=== PATIENT | male | born 1965 | race Caucasian/White ===

== ENCOUNTER 2025-10-17 09:29 | Emergency (ER) | payer BC, SELFPAY ==
[2025-10-17 09:39] VITALS: BP 190/113; BP 194/105; PULSE 77; RESP 22; TEMP 36.4; O2SAT 98; BMI 31.0
--- NOTE | 2025-10-17 09:45 | XR_ITS ---
Examination: CT middle inner ear, without contrast. 2-D coronal reconstructions. 2-D sagittal reconstructions. Date and time of exam: October 17, 2025, 1004 hours INDICATIONS: Right ear pain 1 week CTDI: vol (mGy): 18.6 DLP: (mGycm): 221 Technique: Multiple 1.0 mm axial sections of the middle inner ears bilaterally. High-resolution 64 slice scanner utilized. 2-D coronal reconstructions 2-D sagittal reconstructions Low dose protocols were performed. One or more of the following dose reduction techniques were used; automated exposure control, adjustment of the mA and/or KV according to patient size, use of iterative reconstruction technique. Findings: Axial sections of the right demonstrate adequate mastoid aeration. Mild acute right mastoiditis Jugular fossa and carotid canal do not appear remarkable. No deformity of the ossicles. Porus acusticus internus does not exhibit erosion. Cochlear apparatus unremarkable. Semicircular canals normal. External auditory canal open. Coronal reconstructions demonstrate no erosion of the scutum. No soft tissue mass in the attic or Prussak's space is seen. Ossicular mass intact. Axial sections of the left demonstrate adequate mastoid aeration. Jugular fossa and carotid canal do not appear remarkable. No deformity of the ossicles. Porus acusticus internus does not exhibit erosion. Cochlear apparatus unremarkable. Semicircular canals normal. External auditory canal open Coronal reconstructions demonstrate no erosion of the scutum. No soft tissue mass in the attic or Prussak's space is seen. Ossicular mass intact. Roof of the mastoid air cells appear intact bilaterally. Impression: Negative for chronic mastoiditis Mild acute right mastoiditis Negative for otitis media, negative for otitis externa Negative for acquired cholesteatoma
--- NOTE | 2025-10-17 09:46 | PD.EDEAR ---
ED Ear RME/HPI General Chief complaint: Ear Stated complaint: RIGHT EARACHE Time Seen by Provider: 10/17/25 09:33 Source: patient Arrival date/time: 10/17/25 09:29 60-year-old male with no known medical history presents to the emergency room with a chief complaint of tenderness in 10 out of 10 pain behind the right ear x 2 days Mode of arrival: ambulatory Limitations: no limitations Related Data Previous Rx's ?Medication ?Instructions ?Recorded amoxicillin 875 mg-potassium 1 tab PO BID 7 days #14 tabs 10/17/25 clavulanate 125 mg tablet Allergies Allergy/AdvReac Type Severity Reaction Status Date / Time No Known Allergies Allergy Verified 10/17/25 09:32 Review of Systems Review of Systems Systems Reviewed: All systems reviewed, normal except as documented Constitutional Constitutional: Reports system reviewed and no additional complaints, except as documented, Denies fatigue, Denies fever(s), Denies headache(s) and Denies weakness Eyes Eyes: Reports system reviewed and no additional complaints, except as documented, Denies blurry vision and Denies change in vision ENT Ears, Nose, Mouth, and Throat: Reports system reviewed and no additional complaints, except as documented, Reports otalgia, Denies headache(s), Denies nasal congestion, Denies throat swelling and Denies vertigo Cardiovascular Cardiovascular: Reports system reviewed and no additional complaints, except as documented, Denies chest pain, Denies dyspnea and Denies dyspnea on exertion Respiratory Respiratory: Reports system reviewed and no additional complaints, except as documented, Denies chest congestion, Denies cough, Denies dyspnea, Denies dyspnea on exertion and Denies wheezing Gastrointestinal Gastrointestinal: Reports system reviewed and no additional complaints, except as documented, Denies abdominal pain, Denies cramping, Denies nausea and Denies vomiting Genitourinary Genitourinary: Reports system reviewed and no additional complaints, except as documented, Denies dysuria and Denies hematuria Musculoskeletal Musculoskeletal: Reports system reviewed and no additional complaints, except as documented and Denies back pain Integumentary/Breasts Skin/Breast: Reports system reviewed and no additional complaints, except as documented and Denies wounds Neurologic Neurologic: Reports system reviewed and no additional complaints, except as documented, Denies confusion, Denies headache(s), Denies lack of coordination, Denies vertigo and Denies weakness Psychiatric Psychiatric: Reports system reviewed and no additional complaints, except as documented, Denies anxiety, Denies confusion, Denies depression, Denies paranoia, Denies suicidal ideation and Denies tactile hallucinations Endocrine Endocrine: Reports system reviewed and no additional complaints, except as documented and Denies fatigue Hematologic/Lymphatic Hematologic/Lymphatic: Reports system reviewed and no additional complaints, except as documented and Denies lymphadenopathy Allergic/Immunologic Allergic/Immunologic: Reports system reviewed and no additional complaints, except as documented, Denies throat swelling, Denies urticaria and Denies wheezing Past Medical History Social History SMOKING STATUS: Never smoker ED Exam General Limitations: Present no limitations General appearance: Present alert and in no apparent distress Head Head exam: Present atraumatic Eye Eye exam: Present normal appearance, PERRL and EOMI ENT ENT exam: Present normal exam, normal oropharynx and mucous membranes moist Expanded ENT Exam External ear exam: Present external tenderness TM/Canal exam: Right TM: bulging, effusion and canal tenderness Neck Neck exam: Present normal inspection, full ROM and trachea midline Chest Chest inspection: Present normal inspection and symmetric chest wall rise Respiratory Respiratory exam: Present normal lung sounds bilaterally Cardiovascular Cardiovascular exam: Present regular rate, normal rhythm and normal heart sounds Abdominal Exam Abdominal exam: Present soft and normal bowel sounds Extremities Exam Extremities exam: Present normal inspection and full ROM Back Exam Back exam: Present normal inspection and full ROM Neurological Exam Neurological exam: Present alert, oriented X3 and CN II-XII intact Psychiatric Psychiatric exam: Present normal affect and normal mood Skin Skin exam: Present warm, dry, intact and normal color Course Quality Measures none Orders Category Date Time Status CT ear mid-inner wo Stat Exams 10/17/25 09:45 Completed CBC Stat Lab 10/17/25 09:54 Completed CMP [Comprehensive Metabolic Panel] Stat Lab 10/17/25 09:54 Completed CRP [C-Reactive Protein] Stat Lab 10/17/25 09:54 Completed ESR [Sed Rate (ESR)] Stat Lab 10/17/25 09:54 Completed Ketorolac Inj [Toradol Inj] Med 10/17/25 09:45 Discontinued 30 mg IM X1 ONE cefTRIAXone [Rocephin] 1,000 mg Med 10/17/25 09:46 Discontinued Lidocaine 1% Pf 5 ml [Xylocaine 1% Pf 5 ml] 2.1 ml IM X1 cloNIDine HCL [Catapres] Med 10/17/25 09:46 Discontinued 0.1 mg PO X1 ONE Vital Signs Vital signs: Vital Signs Temperature 97.5 F 10/17/25 09:39 Pulse Rate 77 10/17/25 09:39 Respiratory Rate 22 H 10/17/25 09:39 Blood Pressure 194/105 H 10/17/25 09:39 Pulse Oximetry (%) 98 10/17/25 09:39 Oxygen Delivery Method Room Air 10/17/25 09:39 Ear Patient data External records reviewed:: [facility] previous records Clinical information provided by:: patient Social determinants that could affect healthcare access:: none Patient has the following chronic illnesses:: No chronic illness How is presenting disease/condition affected by chronic disease/condition?: no chronic disease Evaluation data The following diagnostics were reviewed and interpreted by me:: lab results and radiology exam(s) Lab and/or radiology exams considered but not ordered:: Labs and radiology exams considered and ordered Interpretation Summary: CT inner ear-Findings: Axial sections of the right demonstrate adequate mastoid aeration. Mild acute right mastoiditis Jugular fossa and carotid canal do not appear remarkable. No deformity of the ossicles. Porus acusticus internus does not exhibit erosion. Cochlear apparatus unremarkable. Semicircular canals normal. External auditory canal open. Coronal reconstructions demonstrate no erosion of the scutum. No soft tissue mass in the attic or Prussak's space is seen. Ossicular mass intact. Axial sections of the left demonstrate adequate mastoid aeration. Jugular fossa and carotid canal do not appear remarkable. No deformity of the ossicles. Porus acusticus internus does not exhibit erosion. Cochlear apparatus unremarkable. Semicircular canals normal. External auditory canal open Coronal reconstructions demonstrate no erosion of the scutum. No soft tissue mass in the attic or Prussak's space is seen. Ossicular mass intact. Roof of the mastoid air cells appear intact bilaterally. Impression: Negative for chronic mastoiditis Mild acute right mastoiditis Negative for otitis media, negative for otitis externa Negative for acquired cholesteatoma Medications / Prescriptions Medications or Prescriptions considered but not ordered:: Medication given Medication administrations:: Medication Administration History Discontinued Medications Clonidine (Clonidine Hcl 0.1 Mg Tablet) 0.1 mg PO X1 ONE Stop: 10/17/25 09:47 Last Admin: 10/17/25 09:53 Dose: 0.1 mg Documented By: OA Ceftriaxone Sodium 1,000 mg/ (Lidocaine HCl 2.1 ml) 0 mg IM X1 ONE Stop: 10/17/25 09:47 Last Admin: 10/17/25 09:54 Dose: 2.1 mg Documented By: OA Ketorolac Tromethamine (Ketorolac Inj 60 Mg/2 Ml Vial) 30 mg IM X1 ONE Stop: 10/17/25 09:46 Last Admin: 10/17/25 09:54 Dose: 30 mg Documented By: OA Medication given Consultations Consultation(s) initiated? (list below): No Diagnosis Ear Differential Diagnosis: otitis externa, otitis media, foreign body in ear and other (Mastoiditis) Most likely diagnosis given after review of the tests above:: Mastoiditis Admission Indicated Admission indicated?: not indicated Admission Request Was there a request for admission?: No Disposition Plan Disposition Plan: Discharge Discharge Attestation Discharge Attestation: The patient and all family members were given an opportunity to ask questions and understood the discharge instructions. Discharge instructions specifically effects, indications for sooner follow up or return to the emergency department, and the expected course of current diagnosis. Patient condition: Stable Medical Decision Making MDM Narrative MDM Narrative: 60-year-old male with no known medical history presents to the emergency room with a chief complaint of tenderness in 10 out of 10 pain behind the right ear x 2 days Patient is hemodynamically stable and in no apparent distress Patient is afebrile not tachycardic not tachypneic Physical examination shows a nonerythemic nonbulging tympanic membrane in the right ear. There is some external ear canal tenderness. There is also tenderness behind the right ear. A CT of the inner ear was completed and shows mild acute mastoiditis. I spoke to my attending physician Dr. Hill for her recommendations and recommendations were to discharge the patient on oral antibiotics and follow-up with primary care provider Patient was discharged and educated to follow-up with primary care provider in the next 24 to 48 hours and return to the emergency room for any evidence of worsening signs or symptoms Differential Diagnosis Differential Diagnosis: Mastoiditis/otitis externa/otitis media Lab Data 10/17/25 09:54 10/17/25 09:54 Labs: Lab Results 10/17/25 Range/Units 09:54 WBC 6.6 (3.8-10.6) Thou/mm3 RBC 5.73 (4.50-5.90) Miln/mm3 Hgb 18.0 H* (13.5-16.0) g/dL Hct 51.6 (41.0-53.0) % MCV 90 (80-100) fL MCH 31.4 (25.0-35.0) pg MCHC 34.9 (31.0-37.0) g/dl RDW Std Deviation 40.4 (35.1-43.9) fL Plt Count 249 (140-440) Thou/mm3 Neut % (Auto) 45 (37-80) % Lymph % (Auto) 43 (10-50) % [place] % (Auto) 8 (0-12) % Eos % (Auto) 3 (0-10) % Baso % (Auto) 1 (0-2.5) % Neut # (Auto) 3.0 (1.8-7.7) Thou/mm3 Lymph # (Auto) 2.8 (1.0-4.8) Thou/mm3 [place] # (Auto) 0.5 (0.0-0.8) Thou/mm3 Eos # (Auto) 0.2 (0.0-0.5) Thou/mm3 Baso # (Auto) 0.1 (0.0-0.2) Thou/mm3 Immature Gran # (Auto) 0.01 H (0.00-0.00) Thou/mm3 Absolute Nucleated RBC 0.00 (0.00-0.00) Thou/mm3 Immature Gran % 0 (0-0) % Nucleated RBC % 0 (0) /100 WBC ESR 4 (0-20) mm/hr Sodium 143 (136-145) mMol/L Potassium 4.6 (3.4-5.1) mMol/L Chloride 108 H (98-107) mMol/L Carbon Dioxide 23.4 (20.0-31.0) mMol/L Anion Gap 12 (7-16) BUN 10 (9-23) mg/dL Creatinine 1.3 (0.6-1.3) mg/dL Estim Creat Clear Calc 71.0 (>60) mL/min eGFR > 60 (60 - ) See Note BUN/Creatinine Ratio 8 L (12-20) Ratio Glucose 115 H (74-106) mg/dL Calculated Osmolality 284 (275-295) Calcium 10.7 H (8.3-10.6) mg/dL Corrected Calcium 10.7 H (8.5-10.1) mg/dL Total Bilirubin 0.5 (0.3-1.2) mg/dL AST 32 (0-34) U/L ALT 41 (10-49) U/L Alkaline Phosphatase 50 (46-116) U/L C-Reactive Prot, Quant < 0.5 (0.0-0.9) mg/dL Total Protein 7.5 (5.7-8.2) gm/dL Albumin 5.2 H (3.4-4.8) gm/dL Globulin 2.3 (2.3-3.5) gm/dL Albumin/Globulin Ratio 2.3 H (1.2-2.2) Discharge Plan Plan Patient Disposition: HOME (Self Care) Discharge Disposition comment: Stable Prescriptions/Referrals Prescriptions/Med Rec: New amoxicillin-pot clavulanate 875-125 mg tablet 1 tab PO BID 7 Days Qty: 14 0RF Referrals: Arie Ernst PA-C [Primary Care Provider] - In 1 week Problem List Clinical Impression: Acute mastoiditis Patient/Caregiver Discharge Instructions Education Materials: Common Middle Ear Problems, Anatomy of the Ear Additional Instructions: Please follow-up with your primary care provider in the next 24 to 48 hours Antibiotics are sent to your pharmacy please pick them up and take them as indicated For any evidence of worsening signs or symptoms return to the emergency room immediately Print Language: Kazakh Stand Alone Forms: [place] Award Info., Work/School Release, Patient Portal Info Letter
[2025-10-17 09:53] VITALS: BP 194/105; PULSE 77
[2025-10-17] MEDS: KETOROLAC INJ 60 MG/2 ML VIAL 30 MG IM (09:54)
[2025-10-17 10:19] LABS: Basophils # (Auto) 0.1 Thou/mm3 (0.0-0.2); Basophils % (Auto) 1 % (0-2.5); Eosinophils # (Auto) 0.2 Thou/mm3 (0.0-0.5); Eosinophils % (Auto) 3 % (0-10); Hematocrit 51.6 % (41.0-53.0); Hemoglobin 18.0 g/dL (13.5-16.0); Immature Granulocytes Auto 0.01 Thou/mm3 (0.00-0.00); Lymphocytes # (Auto) 2.8 Thou/mm3 (1.0-4.8); Lymphocytes % (Auto) 43 % (10-50); Mean Corpuscular HGB Conc 34.9 g/dl (31.0-37.0); Mean Corpuscular Hemoglobin 31.4 pg (25.0-35.0); Mean Corpuscular Volume 90 fL (80-100); Monocytes # (Auto) 0.5 Thou/mm3 (0.0-0.8); Monocytes % (Auto) 8 % (0-12); Neutrophils # (Auto) 3.0 Thou/mm3 (1.8-7.7); Neutrophils % (Auto) 45 % (37-80); Nucleated Red Blood Cell # 0.00 Thou/mm3 (0.00-0.00); Nucleated Red Blood Cell % 0 /100 WBC (0); Platelet Count 249 Thou/mm3 (140-440); RDW Standard Deviation 40.4 fL (35.1-43.9); Red Blood Count 5.73 Miln/mm3 (4.50-5.90); White Blood Count 6.6 Thou/mm3 (3.8-10.6)
[2025-10-17 10:50] LABS: Anion Gap 12 (7-16); BUN/Creatinine Ratio 8 Ratio (12-20); Blood Urea Nitrogen 10 mg/dL (9-23); Carbon Dioxide 23.4 mMol/L (20.0-31.0); Chloride 108 mMol/L (98-107); Creatinine (Component) 1.3 mg/dL (0.6-1.3); Estimated Creatinine Clearance 71.0 mL/min (>60); Glucose 115 mg/dL (74-106); Potassium 4.6 mMol/L (3.4-5.1); Sodium 143 mMol/L (136-145); eGFR > 60 See Note
[2025-10-17 10:51] LABS: Alanine Aminotransferase 41 U/L (10-49); Albumin, Serum 5.2 gm/dL (3.4-4.8); Albumin/Globulin Ratio 2.3 (1.2-2.2); Aspartate Amino Transferase 32 U/L (0-34); Bilirubin,Total 0.5 mg/dL (0.3-1.2); Calcium 10.7 mg/dL (8.3-10.6); Calcium (Corrected) 10.7 mg/dL (8.5-10.1); Globulin 2.3 gm/dL (2.3-3.5); Osmolality,Calculated 284 (275-295); Total Protein 7.5 gm/dL (5.7-8.2)
[2025-10-17 11:21] LABS: Alkaline Phosphatase 50 U/L (46-116); C-Reactive Protein < 0.5 mg/dL (0.0-0.9)
[2025-10-17 11:43] LABS: Sed Rate (ESR) 4 mm/hr (0-20)
[2025-10-17 12:04] VITALS: BP 144/82; PULSE 77
== END 2025-10-17 12:05 | disposition home or self-care (01) ==
PROVIDERS: Emergency Provider Nurse Practitioner Family; PCP Physician Assistant
DX: H70.001 Acute mastoiditis without complications, right ear (principal)
CPT/HCPCS: 36415; 70480; 80053; 85025; 85652; 86140; 96372; 99283; J0696; J1885; J3490; A9270